=== PATIENT | male | born 1990 | race Caucasian/White ===

== ENCOUNTER 2018-05-31 15:28 | Emergency (ER) | payer SELFPAY ==
[2018-05-31 15:34] VITALS: BP 152/81
[2018-05-31] MEDS ORDERED: TETRACAINE HCL 0.5% OPH SOLN 4 ML OD ONE (15:57)
--- NOTE | 2018-05-31 15:59 | ER Document Report ---
HPI - HPI Time Seen by Provider: 05/31/18 15:45 Pain Level: 4 Context: Patient is a 27-year-old male who presents emerged part with a chief complaint of right eye pain. He states that it is also hard to open it feels like something is stuck in it. His symptoms started 3 days ago. He does state that he does have drainage noted and when he wakes up his stuck together. He takes Benadryl for his allergies normally. Denies any other past medical history. - CONSTITUTIONAL Constitutional: DENIES: Fever, Chills - EENT EENT: REPORTS: Eye problems. DENIES: Sore Throat - NEURO Neurology: DENIES: Headache, Weakness - RESPIRATORY Respiratory: DENIES: Trouble Breathing, Coughing - MUSCULOSKELETAL Musculoskeletal: DENIES: Extremity pain - DERM Skin Color: Normal Skin Problems: None Past Medical History - Social History Smoking Status: Current Every Day Smoker Family History: Reviewed & Not Pertinent Renal/ Medical History: Reports: Hx Kidney Stones - Immunizations Hx Diphtheria, Pertussis, Tetanus Vaccination: Yes Vertical Provider Document - CONSTITUTIONAL Agree With Documented VS: Yes Exam Limitations: No Limitations General Appearance: No Apparent Distress - INFECTION CONTROL TRAVEL OUTSIDE OF THE [place] IN LAST 30 DAYS: No - HEENT HEENT: Atraumatic, Conjuctival Injection, Normocephalic, PERRLA - NECK Neck: Normal Inspection - RESPIRATORY Respiratory: No Respiratory Distress - CARDIOVASCULAR Cardiovascular: Regular Rate - MUSCULOSKELETAL/EXTREMETIES Musculoskeletal/Extremeties: FROM - NEURO Level of Consciousness: Awake, Alert, Appropriate - DERM Integumentary: Warm, Dry Course - Re-evaluation Re-evalutation: Corneal abrasion noted on the anterior aspect of the patient's right eye in front of the pupil. This was identified Via Bridges lamp. I do not suspect the patient has a globe rupture, negative Cory sign. I do not suspect he has acute angle glaucoma. I suspect the patient had been rubbing his eye and irritating his eye and caused himself to have a corneal abrasion. He also does have some conjunctivitis. He will be treated with polymyxin eyedrops and Acular eyedrops and follow-up with ophthalmology as needed. Verbal discharge instructions were given to the patient. They verbalized understanding. They are stable for discharge. - Vital Signs Vital signs: Temp Pulse Resp BP Pulse Ox 98.5 F 108 H 20 152/81 H 96 05/31/18 15:33 05/31/18 15:33 05/31/18 15:33 05/31/18 15:33 05/31/18 15:33 Discharge - Discharge Clinical Impression: Conjunctivitis Qualifiers: Conjunctivitis type: other Laterality: right Qualified Code(s): H10.89 - Other conjunctivitis Corneal abrasion Qualifiers: Encounter type: initial encounter Laterality: right Qualified Code(s): S05.01XA - Injury of conjunctiva and corneal abrasion without foreign body, right eye, initial encounter Condition: Stable Disposition: HOME, SELF-CARE Instructions: Conjunctivitis ([facility]), Eyedrop Use ([facility]) Additional Instructions: You were seen today in the emergency department for right eye pain. You have a corneal abrasion on your exam. You have been given antibiotic eyedrops and eye pain drops. Place 1 drop of the antibiotic eyedrops in your right eye every 3 hours while awake for the next 7 days. You have also been prescribed pain medication eyedrops. Use as directed. Please follow-up with the eye doctor below if your pain is not better within 7 days. Follow up with your primary care doctor as needed. Prescriptions: Ketorolac Tromethamine [Acular] 1 drop OD TID PRN #5 ml PRN Reason: Referrals: TINO MEANS MD [ACTIVE STAFF] - Follow up as needed
[2018-05-31] MEDS ORDERED: POLYMYXIN B SULFATE/TMP OPH SOLN (10 ML/ER DISP) OD PRN (16:09)
== END 2018-05-31 16:21 | disposition home or self-care (01) ==
LOC: ER 15:28
DX: S05.01XA Injury of conjunctiva and corneal abrasion without foreign body, right eye, initial encounter (principal); H10.89 Other conjunctivitis; H57.11 Ocular pain, right eye; X58.XXXA Exposure to other specified factors, initial encounter; F17.200 Nicotine dependence, unspecified, uncomplicated
CPT/HCPCS: 99283; J3490 ×2